=== PATIENT | male | born 1985 | race Caucasian/White ===

== ENCOUNTER 2022-06-17 20:06 | Emergency (ER) | payer SELFPAY ==
[~2022-06-17] VITALS: Ht 170.2 cm; Wt 102.3 kg
[2022-06-17 20:07] VITALS: BP 140/100
[2022-06-17] MEDS ORDERED: LYRI300C PO (20:17)
[2022-06-17] MEDS ORDERED: CELE1CAP7 PO (20:17)
[2022-06-17] MEDS ORDERED: PANT40TA29 PO (20:17)
[2022-06-17] MEDS ORDERED: CETI10CH PO (20:17)
[2022-06-17] MEDS ORDERED: LITH300C PO (20:17)
[2022-06-17] MEDS ORDERED: RIZA10TA2 PO (20:17)
[2022-06-17] MEDS ORDERED: LISI20TA37 PO (20:17)
== END 2022-06-17 20:30 | disposition left against medical advice (07) ==
LOC: M ED 20:06
DX: Z53.21 Procedure and treatment not carried out due to patient leaving prior to being seen by health care provider (principal)